=== PATIENT | female | born 1940 | race Caucasian/White ===

== ENCOUNTER 2025-01-29 05:52 | Inpatient (IN) | payer MEDICARE, MEDICAID ==
[~2025-01-29] VITALS: Ht 154.9 cm; Wt 48.5 kg
[2025-01-29] VITALS (14 sets, daily range): BP systolic 106–130; BP diastolic 63–99; PULSE 76–95; RESP 14–23; TEMP 36.2–36.6; O2SAT 99–100
[~2025-01-29 05:52] MED LIST: ATOR40TA70 PO; BRIM.2; BUME2TAB7 PO; FERR325T6 MT; GLIP5TAB22 PO; HYDR25TA PO; INSU100I28 SQ; IPRA3AMP9 HHN; LATA2.5D14 EACHEYE; METF-414 PO; MONT-46 PO; NETA2.5D EACHEYE; PANT40TA51 PO; PILO15DR36 EACHEYE; POTA-203 PO; TOPUD PO
[2025-01-29] MEDS ORDERED: VANCOMYCIN 1.5GM/250ML 250 ML IV SCH (06:15)
[2025-01-29] MEDS ORDERED: CEFEPIME 2GM IN DEXT 5% 100ML IV ONE (06:15)
[2025-01-29] MEDS: LACTATED RINGERS 1,000 ML IV SCH (06:42)
[2025-01-29 06:48] LABS: BASOPHILS % 0.7 % (0.0-2.0); EOSINOPHILS % 1.1 % (0.0-5.0); HEMATOCRIT. 36.8 % (36.0-48.0); MEAN CORPUSCULAR HEMOGLOBIN 31.9 pg (28.0-32.0); MEAN CORPUSCULAR HGB CONC 32.7 g/dL (31.0-37.0); MEAN CORPUSCULAR VOLUME 97.5 fL (81.0-99.0); MEAN PLATELET VOLUME 9.4 fl (7.4-10.4); MONOCYTES % 9.3 % (2.0-8.0); NEUTROPHILS % 64.9 % (40.0-76.0); PLATELET 621 x1000/uL (130-400); RED BLOOD CELL COUNT 3.77 mill/uL (4.2-5.4); RED CELL DISTRIBUTION WIDTH 16.2 % (11.6-14.6); WHITE BLOOD COUNT 9.4 x1000/uL (4.5-11.0)
[2025-01-29 06:59] LABS: PROTHROMBIN TIME 10.3 sec (9.6-11.0)
[2025-01-29] MEDS: CEFEPIME 2GM/50ML DUPLEX 50 ML IV NR (07:00)
[2025-01-29 07:01] LABS: CHLORIDE 105 mEq/L (98-107); POTASSIUM 4.4 mEq/L (3.5-5.1); SODIUM 149 mEq/L (136-145)
[2025-01-29 07:02] LABS: CALCIUM 9.3 mg/dL (8.7-10.4); CARBON DIOXIDE 37 mEq/L (21-32)
[2025-01-29 07:07] LABS: GLUCOSE 274 mg/dL (70-105); TROPONIN I HIGH SENSITIVITY 6 ng/L (3.0-34); UREA NITROGEN BLOOD 67 mg/dL (9-23)
[2025-01-29 07:09] LABS: ALANINE AMINOTRANSFERASE 26 IU/L (10-49); ALBUMIN 4.2 g/dL (3.2-4.8); ASPARTATE AMINOTRANSFERASE 18 IU/L (<34); BILIRUBIN DIRECT < 0.1 mg/dL (<=3.0); BILIRUBIN TOTAL 0.2 mg/dL (0.1-1.0); PROTEIN TOTAL 7.4 g/dL (6.0-8.3)
[2025-01-29] MEDS: VANCOMYCIN 1GM/200ML PMX (BAXTER) IV NR (07:23)
[2025-01-29 07:33] LABS: LACTIC ACID 2.3 mmol/L (0.4-2.0)
[2025-01-29] MEDS: ACETAMINOPHEN 650MG SUPP PR SCH (08:09)
[2025-01-29 08:26] LABS: CLARITY URINE CLEAR (CLEAR); COLOR URINE YELLOW (YELLOW); GLUCOSE URINE NEGATIVE (NEGATIVE); KETONES URINE NEGATIVE (NEGATIVE); LEUKOCYTE ESTERASE URINE 2+ (NEGATIVE); NITRITE URINE NEGATIVE (NEGATIVE); OCCULT BLOOD URINE 2+ (NEGATIVE); PROTEIN URINE TRACE (NEGATIVE); SPECIFIC GRAVITY URINE 1.018 (1.005-1.030); UROBILINOGEN URINE 0.2 E.U./dL (0.2-1.0)
[2025-01-29 08:41] LABS: BACTERIA URINE 2+; SQUAMOUS EPITHELIAL CELL URINE 1+ /lpf (RARE/1+); TRICHOMONAS URINE 1+; WBC URINE 15-25 /hpf (0-2); YEAST URINE NONE SEEN
[2025-01-29 08:52] LABS: TROPONIN I HIGH SENSITIVITY 6 ng/L (3.0-34)
[2025-01-29] MEDS ORDERED: DEXTROSE 50% WATER 50ML SYRINGE IV PRN (12:00)
[2025-01-29] MEDS ORDERED: IPRATROPIUM/ALBUTEROL 0.5-3(2.5)MG/3ML NEB HHN PRN (12:00)
[2025-01-29] MEDS ORDERED: ONDANSETRON HCL 4MG/2ML INJ IV PRN (12:00)
[2025-01-29] MEDS ORDERED: DOCUSATE SODIUM 100MG CAPSULE PO PRN (12:00)
[2025-01-29] MEDS ORDERED: ACETAMINOPHEN 325MG TABLET PO PRN ×2 (12:00)
[2025-01-29] MEDS ORDERED: CLONIDINE 0.1MG TABLET PO PRN (12:00)
[2025-01-29] MEDS: DEXT 5%/0.45% NACL 1000ML 1,000 ML IV SCH (12:01)
[2025-01-29] MEDS: BLOOD SUGAR DIAGNOSTIC STRIP TEST SCH (12:12)
[2025-01-29] MEDS: INSULIN LISPRO 100 UNITS/ML SUBCUT SCH (12:42)
[2025-01-29] MEDS ORDERED: SODIUM CHLORIDE 0.9% 250 ML IV NR (15:30)
[2025-01-29 17:29] LABS: CREATINE KINASE < 15 IU/L (34-145)
[2025-01-29] MEDS: MONTELUKAST SODIUM 10MG TABLET PO SCH (17:44)
[2025-01-30] VITALS (12 sets, daily range): BP systolic 104–146; BP diastolic 55–115; PULSE 72–102; RESP 15–24; TEMP 34.9–37.6; O2SAT 85–100
[2025-01-30 05:56] LABS: CHLORIDE 101 mEq/L (98-107); POTASSIUM 3.6 mEq/L (3.5-5.1); SODIUM 141 mEq/L (136-145)
[2025-01-30 05:57] LABS: CALCIUM 8.8 mg/dL (8.7-10.4); CARBON DIOXIDE 33 mEq/L (21-32)
[2025-01-30 06:02] LABS: CREATININE 0.7 mg/dL (0.6-1.0); GLUCOSE 269 mg/dL (70-105); UREA NITROGEN BLOOD 44 mg/dL (9-23)
[2025-01-30 06:11] LABS: BASOPHILS % 0.6 % (0.0-2.0); EOSINOPHILS % 3.8 % (0.0-5.0); HEMATOCRIT. 33.7 % (36.0-48.0); HEMOGLOBIN. 10.9 g/dL (12.0-16.0); LYMPHOCYTES % 29.1 % (20.0-50.0); MEAN CORPUSCULAR HEMOGLOBIN 31.6 pg (28.0-32.0); MEAN CORPUSCULAR HGB CONC 32.3 g/dL (31.0-37.0); MEAN CORPUSCULAR VOLUME 97.7 fL (81.0-99.0); MEAN PLATELET VOLUME 9.7 fl (7.4-10.4); MONOCYTES % 8.5 % (2.0-8.0); PLATELET 454 x1000/uL (130-400); RED BLOOD CELL COUNT 3.45 mill/uL (4.2-5.4); RED CELL DISTRIBUTION WIDTH 15.8 % (11.6-14.6); WHITE BLOOD COUNT 7.9 x1000/uL (4.5-11.0)
[2025-01-30] MEDS: ATORVASTATIN CALCIUM 40MG TABLET PO SCH (08:55)
[2025-01-30] MEDS: BRIMONIDINE 0.2% OPHTH DROPS 5ML EACHEYE SCH (08:56)
[2025-01-30] MEDS: LATANOPROST 0.005% OPHTH DROPS 2.5ML EACHEYE SCH (08:56)
[2025-01-30] MEDS: PILOCARPINE HCL 1% OPHTH DROPS 15ML EACHEYE SCH (08:57)
[2025-01-30 13:42] LABS: AMMONIA < 17 uMol/L (<32)
[2025-01-31] VITALS (11 sets, daily range): BP systolic 92–136; BP diastolic 52–113; PULSE 68–88; RESP 15–27; TEMP 36.3–37.6; O2SAT 96–100
[2025-01-31 06:44] LABS: CALCIUM 9.2 mg/dL (8.7-10.4); CHLORIDE 106 mEq/L (98-107); POTASSIUM 4.4 mEq/L (3.5-5.1); SODIUM 141 mEq/L (136-145)
[2025-01-31 06:45] LABS: CARBON DIOXIDE 29 mEq/L (21-32)
[2025-01-31 06:50] LABS: CREATININE 0.6 mg/dL (0.6-1.0)
[2025-01-31 06:51] LABS: BASOPHILS % 0.5 % (0.0-2.0); EOSINOPHILS % 2.9 % (0.0-5.0); GLUCOSE 208 mg/dL (70-105); HEMATOCRIT. 30.4 % (36.0-48.0); HEMOGLOBIN. 10.3 g/dL (12.0-16.0); MEAN CORPUSCULAR HEMOGLOBIN 32.4 pg (28.0-32.0); MEAN CORPUSCULAR HGB CONC 33.8 g/dL (31.0-37.0); MEAN CORPUSCULAR VOLUME 95.7 fL (81.0-99.0); MEAN PLATELET VOLUME 10.1 fl (7.4-10.4); NEUTROPHILS % 55.6 % (40.0-76.0); PLATELET 398 x1000/uL (130-400); RED BLOOD CELL COUNT 3.18 mill/uL (4.2-5.4); UREA NITROGEN BLOOD 24 mg/dL (9-23); WHITE BLOOD COUNT 7.4 x1000/uL (4.5-11.0)
== END 2025-01-31 16:50 | DRG 871 ==
LOC: ER 05:52 → EDBEDREQ 06:20 → EDBEDREQTM 07:52 → EDBEDREQ 07:52 → ENRESERV 08:10 → 5EST 08:48
PROVIDERS: ADMIT Internal Medicine; ATTEND Internal Medicine
DX: A41.9 Sepsis, unspecified organism (principal); G82.50 Quadriplegia, unspecified; G93.41 Metabolic encephalopathy; E87.0 Hyperosmolality and hypernatremia; E87.20 Acidosis, unspecified; N17.9 Acute kidney failure, unspecified; N39.0 Urinary tract infection, site not specified; E11.9 Type 2 diabetes mellitus without complications; I11.0 Hypertensive heart disease with heart failure; I50.9 Heart failure, unspecified; J44.9 Chronic obstructive pulmonary disease, unspecified; R65.20 Severe sepsis without septic shock; F32.A Depression, unspecified; F41.9 Anxiety disorder, unspecified; E86.0 Dehydration; R13.10 Dysphagia, unspecified; F03.90 Unspecified dementia, unspecified severity, without behavioral disturbance, psychotic disturbance, mood disturbance, and anxiety; E78.00 Pure hypercholesterolemia, unspecified; D64.9 Anemia, unspecified; Z74.01 Bed confinement status; Z79.4 Long term (current) use of insulin; Z88.0 Allergy status to penicillin; Z88.2 Allergy status to sulfonamides; Z91.010 Allergy to peanuts; Z88.6 Allergy status to analgesic agent; Z93.1 Gastrostomy status; Z99.81 Dependence on supplemental oxygen
CPT/HCPCS: 36415; 71045; 80048; 80076; 81003; 82140; 82550; 82962; 83036; 83605; 84145; 84484; 85025; 93005; 93306; 99291; J0692; J1815; J3370

== ENCOUNTER 2025-03-22 16:45 | Inpatient (IN) | payer MEDICARE, MEDICAID ==
[~2025-03-22] VITALS: Ht 162.6 cm; Wt 50.3 kg
[~2025-03-22 16:45] MED LIST changes: -BRIM.2; +BRIM.2 EACHEYE; -FERR325T6 MT; -INSU100I28 SQ; -IPRA3AMP9 HHN; -NETA2.5D EACHEYE; -PANT40TA51 PO; +POTA-189 PO; -POTA-203 PO; -TOPUD PO
[2025-03-22] MEDS ORDERED: CEFEPIME 2GM IN DEXT 5% 100ML IV ONE (17:00)
[2025-03-22] MEDS: SODIUM CHLORIDE 0.9% 500 ML IV ONE (17:01)
[2025-03-22] MEDS: VANCOMYCIN 1G PREMIX 200 ML IV ONE (17:02)
[2025-03-22] MEDS ORDERED: CEFEPIME 2,000MG in DEXT 5% WATER 100ML IV NR (17:15)
[2025-03-22 17:20] LABS: BASOPHILS % 0.5 % (0.0-2.0); EOSINOPHILS % 0.2 % (0.0-5.0); HEMATOCRIT. 43.0 % (36.0-48.0); HEMOGLOBIN. 13.5 g/dL (12.0-16.0); LYMPHOCYTES % 24.4 % (20.0-50.0); MEAN PLATELET VOLUME 11.1 fl (7.4-10.4); MONOCYTES % 6.0 % (2.0-8.0); NEUTROPHILS % 68.9 % (40.0-76.0); PLATELET 361 x1000/uL (130-400); RED BLOOD CELL COUNT 4.17 mill/uL (4.2-5.4); RED CELL DISTRIBUTION WIDTH 18.6 % (11.6-14.6)
[2025-03-22] MEDS: CEFEPIME 2GM/100ML 100 ML IV SCH (17:30)
[2025-03-22 17:35] LABS: CREATININE 1.1 mg/dL (0.6-1.0)
[2025-03-22 17:36] LABS: TROPONIN I HIGH SENSITIVITY 18 ng/L (3.0-34); UREA NITROGEN BLOOD 82 mg/dL (9-23)
[2025-03-22 17:37] LABS: ASPARTATE AMINOTRANSFERASE 168 IU/L (<34)
[2025-03-22 17:38] LABS: BILIRUBIN DIRECT < 0.1 mg/dL (<=3.0); BILIRUBIN TOTAL 0.3 mg/dL (0.1-1.0); PROTEIN TOTAL 6.6 g/dL (6.0-8.3)
[2025-03-22 17:49] LABS: INR 1.0
[2025-03-22 18:25] LABS: CLARITY URINE CLEAR (CLEAR); COLOR URINE YELLOW (YELLOW); GLUCOSE URINE NEGATIVE (NEGATIVE); KETONES URINE TRACE (NEGATIVE); LEUKOCYTE ESTERASE URINE NEGATIVE (NEGATIVE); NITRITE URINE NEGATIVE (NEGATIVE); OCCULT BLOOD URINE NEGATIVE (NEGATIVE); PH URINE 5.0 (4.5-8.0); PROTEIN URINE NEGATIVE (NEGATIVE); SPECIFIC GRAVITY URINE 1.025 (1.005-1.030); UROBILINOGEN URINE 0.2 E.U./dL (0.2-1.0)
[2025-03-22] MEDS: SODIUM CHLORIDE 0.9% 1,000 ML IV ONE (19:03)
[2025-03-22 21:00] VITALS: BP 99/61; PULSE 106; RESP 18; TEMP 36.418
[2025-03-22] MEDS ORDERED: GUAIFENESIN 200MG/10ML SUGAR FREE UDC PO PRN (22:30)
[2025-03-22] MEDS ORDERED: DOCUSATE SODIUM 100MG CAPSULE PO PRN (22:30)
[2025-03-22] MEDS ORDERED: ACETAMINOPHEN 325MG TABLET PO PRN ×2 (22:30)
[2025-03-22] MEDS ORDERED: ENOXAPARIN 40MG/0.4ML SYR SUBCUT SCH (22:30)
[2025-03-22] MEDS ORDERED: IPRATROPIUM/ALBUTEROL 0.5-3(2.5)MG/3ML NEB HHN PRN (22:30)
[2025-03-22] MEDS ORDERED: MAGNESIUM/ALUMINUM HYDROXIDE/SIMETHICONE 30ML UDC PO PRN (22:30)
[2025-03-22] MEDS ORDERED: ONDANSETRON HCL 4MG/2ML INJ IV PRN (22:30)
[2025-03-22] MEDS ORDERED: CLONIDINE 0.1MG TABLET PO PRN (22:30)
[2025-03-22] MEDS ORDERED: NALOXONE HCL 0.4MG/ML VIAL IV PRN (22:45)
[2025-03-23] VITALS: BP 99/57; PULSE 107; RESP 20; TEMP 36.6; O2SAT 98
[2025-03-23] MEDS: DEXTROSE 5% WATER 1,000 ML IV SCH (00:15)
[2025-03-23] MEDS: CEFTRIAXONE 1GM/50ML 50 ML IV SCH (00:19)
[2025-03-23 01:42] LABS: HEPATITIS A AB IGM NEGATIVE (Negative); HEPATITIS B CORE AB IGM NEGATIVE (Negative)
[2025-03-23 01:43] LABS: HEPATITIS C AB NON REACTIVE (Neg) (Negative)
[2025-03-23 04:00] VITALS: BP 111/67; PULSE 107; RESP 20; TEMP 36.5; O2SAT 96
[2025-03-23 07:11] LABS: BASOPHILS % 0.7 % (0.0-2.0); EOSINOPHILS % 1.0 % (0.0-5.0); HEMATOCRIT. 37.9 % (36.0-48.0); HEMOGLOBIN. 12.1 g/dL (12.0-16.0); LYMPHOCYTES % 24.4 % (20.0-50.0); MEAN PLATELET VOLUME 11.0 fl (7.4-10.4); MONOCYTES % 5.7 % (2.0-8.0); NEUTROPHILS % 68.2 % (40.0-76.0); PLATELET 300 x1000/uL (130-400); RED BLOOD CELL COUNT 3.71 mill/uL (4.2-5.4); RED CELL DISTRIBUTION WIDTH 17.7 % (11.6-14.6)
[2025-03-23 07:19] LABS: CREATINE KINASE MB FRACTION < 0.5 ng/mL (0.5-3.6)
[2025-03-23 07:20] LABS: TROPONIN I HIGH SENSITIVITY 16 ng/L (3.0-34)
[2025-03-23 08:00] VITALS: BP 112/68; PULSE 101; RESP 18; TEMP 36.2; O2SAT 99
[2025-03-23] MEDS: ASPIRIN 81MG EC TABLET PO SCH (09:00)
[2025-03-23] MEDS ORDERED: ACETAMINOPHEN 325MG TABLET PO PRN (09:30)
[2025-03-23] MEDS ORDERED: DEXTROSE 50% WATER 50ML SYRINGE IV PRN (09:30)
[2025-03-23] MEDS ORDERED: MULT-1146 MT (10:05)
[2025-03-23] MEDS ORDERED: PANT40TA51 MT (10:05)
[2025-03-23] MEDS ORDERED: FURO-151 MT (10:05)
[2025-03-23] MEDS ORDERED: LANTUSUD SUBCUT (10:05)
[2025-03-23] MEDS ORDERED: INSLIS SUBCUT (10:05)
[2025-03-23 10:37] LABS: BG FRACTION INSPIRED OXYGEN 34; BG SAMPLE SITE RIGHT BRACHIAL; BG VENT MODE NASAL CANULA
[2025-03-23 10:38] LABS: BG BASE EXCESS 6.2 mmol/L (-2.0-3.0); BG HCO3 ACT 30.0 mmol/L (21.0-28.0); BG OXYGEN SATURATION 92.0 % (94.0-98.0); BG OXYHEMOGLOBIN 91.3 % (94.0-98.0); BG PCO2 40.1 mmHg (32.0-45.0); BG PH 7.492 (7.350-7.450); BG PO2 62.0 mmHg (83.0-108.0); BG TOTAL HEMOGLOBIN 13.3 g/dL (12.0-16.0)
[2025-03-23 10:39] LABS: BG CARBOXYHEMOGLOBIN 0.5 % (0.5-1.5); BG DEOXYHEMOGLOBIN 7.9 % (0.0-5.0); BG METHEMOGLOBIN 0.3 % (0.5-1.5)
[2025-03-23] MEDS: METHYLPREDNISOLONE SOD SUCC 40MG/ML (ACT-O-VIAL) IV SCH (10:57)
[2025-03-23] MEDS: ENOXAPARIN 30MG/0.3ML SYR SUBCUT SCH (10:57)
[2025-03-23] MEDS: MULTIVITAMINS,THER W-MINERALS TABLET PO SCH (10:57)
[2025-03-23] MEDS: FAMOTIDINE 20MG/2ML VIAL IV SCH (10:58)
[2025-03-23] MEDS: HYDROCODONE/ACETAMINOPHEN 5/325MG TABLET PO PRN (10:59)
[2025-03-23] MEDS ORDERED: IPRATROPIUM/ALBUTEROL 0.5-3(2.5)MG/3ML NEB HHN SCH (12:00)
[2025-03-23] MEDS: BLOOD SUGAR DIAGNOSTIC STRIP TEST SCH (12:40)
[2025-03-23] MEDS: INSULIN LISPRO 100 UNITS/ML SUBCUT SCH (13:10)
[2025-03-23] MEDS: PILOCARPINE HCL 1% OPHTH DROPS 15ML EACHEYE SCH (14:00)
[2025-03-23] MEDS: BRIMONIDINE 0.2% OPHTH DROPS 5ML EACHEYE SCH (14:00)
[2025-03-23 14:59] LABS: BG FLOW(L/min) 3.50 L/min
[2025-03-23 15:51] LABS: *AMPHETAMINES SCREEN URINE NEGATIVE (NEGATIVE); *BARBITURATES SCREEN URINE NEGATIVE (NEGATIVE); *BENZODIAZEPINES SCREEN URINE NEGATIVE (NEGATIVE)
[2025-03-23 15:52] LABS: *COCAINE SCREEN URINE NEGATIVE (NEGATIVE); CANNABINOID URINE SCREEN NEGATIVE (NEGATIVE); ECSTASY MDMA SCREEN URINE NEGATIVE (NEGATIVE); METHADONE URINE SCREEN NEGATIVE (NEGATIVE); OPIATES URINE SCREEN NEGATIVE (NEGATIVE); PHENCYCLIDINE URINE SCREEN NEGATIVE (NEGATIVE)
[2025-03-23 16:00] VITALS: BP 112/71; PULSE 106; RESP 18; TEMP 36.5; O2SAT 98
[2025-03-23] MEDS ORDERED: VANCOMYCIN 1G PREMIX 200 ML IV SCH (17:00)
[2025-03-23 17:08] LABS: CREATINE KINASE MB FRACTION < 0.5 ng/mL (0.5-3.6); TROPONIN I HIGH SENSITIVITY 9 ng/L (3.0-34)
[2025-03-23] MEDS: VANCOMYCIN 750MG/150ML (BAXTER) IV SCH (18:18)
[2025-03-23] MEDS: MONTELUKAST SODIUM 10MG TABLET PO SCH (18:19)
[2025-03-23 20:00] VITALS: BP 108/73; PULSE 96; RESP 20; TEMP 37.1; O2SAT 100
[2025-03-23] MEDS: METOPROLOL TARTRATE 50MG TABLET PO SCH (21:00)
[2025-03-23] MEDS: IPRATROPIUM/ALBUTEROL 0.5-3(2.5)MG/3ML NEB HHN SCH (21:02)
[2025-03-23 21:03] VITALS: PULSE 94; RESP 18
[2025-03-23] MEDS: ATORVASTATIN CALCIUM 40MG TABLET PO SCH (21:33)
[2025-03-23] MEDS: LATANOPROST 0.005% OPHTH DROPS 2.5ML EACHEYE SCH (21:33)
[2025-03-24] VITALS (10 sets, daily range): BP systolic 94–125; BP diastolic 54–84; PULSE 66–104; RESP 16–20; TEMP 36–36.9; O2SAT 95–100
[2025-03-24 07:03] LABS: BASOPHILS % 0.2 % (0.0-2.0); EOSINOPHILS % 0.0 % (0.0-5.0); HEMATOCRIT. 39.1 % (36.0-48.0); HEMOGLOBIN. 12.3 g/dL (12.0-16.0); LYMPHOCYTES % 9.6 % (20.0-50.0); MEAN PLATELET VOLUME 11.7 fl (7.4-10.4); MONOCYTES % 1.5 % (2.0-8.0); NEUTROPHILS % 88.7 % (40.0-76.0); PLATELET 279 x1000/uL (130-400); RED BLOOD CELL COUNT 3.76 mill/uL (4.2-5.4); RED CELL DISTRIBUTION WIDTH 17.9 % (11.6-14.6)
[2025-03-24 07:21] LABS: INR 0.9
[2025-03-24 07:28] LABS: CREATININE 0.8 mg/dL (0.6-1.0)
[2025-03-24 07:29] LABS: LDL CHOLESTEROL 172 mg/dL (5-100); TRIGLYCERIDE 223 mg/dL (0-150); UREA NITROGEN BLOOD 43 mg/dL (9-23)
[2025-03-24 07:30] LABS: ASPARTATE AMINOTRANSFERASE 25 IU/L (<34); BILIRUBIN DIRECT 0.1 mg/dL (<=3.0); PHOSPHORUS 4.4 mg/dL (2.5-4.9)
[2025-03-24 07:31] LABS: BILIRUBIN TOTAL 0.4 mg/dL (0.1-1.0); PROTEIN TOTAL 6.4 g/dL (6.0-8.3)
[2025-03-24] MEDS: FUROSEMIDE 40MG TABLET PO SCH (08:22)
[2025-03-24] MEDS: HYDROCHLOROTHIAZIDE 25MG TABLET PO SCH (08:35)
[2025-03-24] MEDS: KCL 20MEQ/100ML PREMIX 100 ML IV SCH (10:39)
[2025-03-24] MEDS: INSULIN LISPRO 100 UNITS/ML SUBCUT SCH (23:28)
[2025-03-24] MEDS: INSULIN GLARGINE 100 UNITS/ML SUBCUT SCH (23:29)
[2025-03-25] VITALS (9 sets, daily range): BP systolic 95–181; BP diastolic 56–98; PULSE 77–102; RESP 18–20; TEMP 35.9–37.1; O2SAT 94–99
[2025-03-25 07:16] LABS: CREATININE 1.0 mg/dL (0.6-1.0); UREA NITROGEN BLOOD 48.0 mg/dL (9-23)
[2025-03-25 07:25] LABS: BASOPHILS % 0.1 % (0.0-2.0); EOSINOPHILS % 0.1 % (0.0-5.0); HEMATOCRIT. 38.6 % (36.0-48.0); HEMOGLOBIN. 10.9 g/dL (12.0-16.0); LYMPHOCYTES % 7.6 % (20.0-50.0); MEAN PLATELET VOLUME 11.4 fl (7.4-10.4); MONOCYTES % 3.2 % (2.0-8.0); NEUTROPHILS % 89.0 % (40.0-76.0); PLATELET 241 x1000/uL (130-400); RED BLOOD CELL COUNT 3.57 mill/uL (4.2-5.4); RED CELL DISTRIBUTION WIDTH 18.1 % (11.6-14.6)
[2025-03-26] VITALS (10 sets, daily range): BP systolic 92–138; BP diastolic 36–64; PULSE 61–87; RESP 16–22; TEMP 36.2–36.3; O2SAT 95–99
[2025-03-26] MEDS: PREDNISONE 20MG TABLET PO SCH (08:42)
[2025-03-26] MEDS: SODIUM CHLORIDE 0.45% 1,000 ML IV SCH (09:09)
[2025-03-26 10:08] LABS: CREATININE 0.7 mg/dL (0.6-1.0)
[2025-03-26 10:09] LABS: UREA NITROGEN BLOOD 43 mg/dL (9-23)
[2025-03-26] MEDS ORDERED: METO-539 PO (11:24)
[2025-03-26] MEDS ORDERED: P20 PO (11:24)
[2025-03-26] MEDS ORDERED: ASPI-1406 PO (11:24)
[2025-03-26 11:42] LABS: BASOPHILS % 0.4 % (0.0-2.0); EOSINOPHILS % 0.2 % (0.0-5.0); HEMATOCRIT. 31.1 % (36.0-48.0); HEMOGLOBIN. 10.3 g/dL (12.0-16.0); LYMPHOCYTES % 23.0 % (20.0-50.0); MEAN PLATELET VOLUME 11.9 fl (7.4-10.4); MONOCYTES % 6.2 % (2.0-8.0); NEUTROPHILS % 70.2 % (40.0-76.0); PLATELET 264 x1000/uL (130-400); RED BLOOD CELL COUNT 3.14 mill/uL (4.2-5.4); RED CELL DISTRIBUTION WIDTH 16.7 % (11.6-14.6)
== END 2025-03-26 17:15 | DRG 640 ==
LOC: ER 16:45 → EDBEDREQTM 19:07 → EDBEDREQ 19:07 → ENRESERV 19:11 → 7WST 20:44
PROVIDERS: ADMIT Internal Medicine; ATTEND Internal Medicine
DX: E87.4 Mixed disorder of acid-base balance (principal); A41.50 Gram-negative sepsis, unspecified; G93.41 Metabolic encephalopathy; J96.21 Acute and chronic respiratory failure with hypoxia; I50.32 Chronic diastolic (congestive) heart failure; N17.9 Acute kidney failure, unspecified; B37.49 Other urogenital candidiasis; E87.0 Hyperosmolality and hypernatremia; J44.9 Chronic obstructive pulmonary disease, unspecified; F03.90 Unspecified dementia, unspecified severity, without behavioral disturbance, psychotic disturbance, mood disturbance, and anxiety; E11.65 Type 2 diabetes mellitus with hyperglycemia; R13.10 Dysphagia, unspecified; Z20.822 Contact with and (suspected) exposure to COVID-19; E83.41 Hypermagnesemia; M24.452 Recurrent dislocation, left hip; R74.01 Elevation of levels of liver transaminase levels; E78.00 Pure hypercholesterolemia, unspecified; I11.0 Hypertensive heart disease with heart failure; K21.9 Gastro-esophageal reflux disease without esophagitis; E86.9 Volume depletion, unspecified; Z99.81 Dependence on supplemental oxygen; Z88.0 Allergy status to penicillin; Z88.2 Allergy status to sulfonamides; Z88.6 Allergy status to analgesic agent; Z91.010 Allergy to peanuts; Z93.1 Gastrostomy status; Z88.8 Allergy status to other drugs, medicaments and biological substances
CPT/HCPCS: 31720; 36415; 36600; 71045; 74176; 76705; 80048; 80061; 80076; 80202; 80305; 81003; 82375; 82550; 82553; 82805; 82962; 83036; 83605; 83735; 83880; 84100; 84145; 84443; 84484; 85025; 86705; 86709; 87077; 87106; 87340; 87426; 93005; 93970; 94070; 94640; 94664; 94760; 97161; 97166; 98960; 99291; J0692; J0696; J1308; J1650; J1815; J2919; J3373; J3480; J7030; J7040; J7060; J7070; J7512